=== PATIENT | female | born 1950 | race Caucasian/White ===

== ENCOUNTER 2017-02-12 11:49 | Outpatient (CLI) | payer MEDICARE, OTHER ==
[2017-02-12 14:36] LABS: Anion Gap 16 mmol/L (10-20); BUN (Urea Nitrogen) 9 mg/dL (9.8-20.1); Calc. Creatinine Clearance 0 mL/min (70-130); Calcium 10.3 mg/dL (7.8-10.44); Carbon Dioxide 28 mmol/L (23-31); Chloride 100 mmol/L (98-107); Estimated GFR-MDRD 76; Glucose 106 mg/dL (80-115); Potassium 4.3 mmol/L (3.5-5.1); Sodium 140 mmol/L (136-145)
== END 2017-02-12 11:50 ==
LOC: NAVSJIPCSP 11:49
PROVIDERS: ATTEND Internal Medicine
DX: N64.52 Nipple discharge (principal); I11.9 Hypertensive heart disease without heart failure
CPT/HCPCS: 36415; 80048

== ENCOUNTER 2022-08-02 08:51 | Outpatient (CLI) | payer MEDICARE, OTHER | END 2022-08-02 08:52 | disposition home or self-care (01) | LOC: NAV CT 08:51 | DX: S09.90XA Unspecified injury of head, initial encounter (principal) | CPT/HCPCS: 70450 ==